=== PATIENT | female | born 1960 | race Caucasian/White ===

== ENCOUNTER 2018-08-28 12:47 | Emergency (ER) | payer SELFPAY ==
[~2018-08-28] VITALS: Ht 157.5 cm; Wt 68.0 kg
[2018-08-28 13:00] VITALS: BP 200/99
[2018-08-28] MEDS ORDERED: LISI-334 PO (13:28)
[2018-08-28 13:53] LABS: BILIRUBIN,URINE SMALL (NEG); CLARITY,URINE CLEAR; COLOR,URINE YELLOW; NITRITE,URINE NEGATIVE (NEG); PROTEIN,URINE 30 mg/dL (NEG-TRACE); UROBILINOGEN,URINE 0.2 mg/dL (0.2 mg/dL)
--- NOTE | 2018-08-28 14:09 | PHYS DOC ---
Past Medical History Past Medical History: Cancer, Hypertension, Other Additional Past Medical Histor: cervical cancer treated with radiation Past Surgical History: Tonsillectomy Additional Information: 11/08 ppd Alcohol Use: None Drug Use: None Adult General Chief Complaint Chief Complaint: VAGINAL BLEEDING [facility] HPI 58-year-old female presents for evaluation of dysuria, urgency, frequency and hematuria. She reports blood on the tissue after urinating. She is unsure whether she is having blood coming from the vagina. She has not noticed any blood after having bowel movements but is unsure. She reports this is her third ER visit in the past 3 months for similar symptoms. She has been seen at [facility] as well as another emergency room and diagnosed with UTI. She has taken to different antibiotics and states the symptoms get better briefly after the antibiotics but seemed to return. She does have an appointment with her primary care doctor on 09/04/18 for Pap smear and exam. She has not had a menstrual cycle for over 15 years, reports history of cervical cancer, underwent radiation and treatment. She reports has not had a menstrual cycle since that time. She does still have uterus. She reports history of chronic constipation for which she takes Colace regularly. Denies any fevers. Review of Systems Review of Systems Constitutional: Denies fever or chills [] Respiratory: Denies cough or shortness of breath [] Cardiovascular: No additional information not addressed in HPI [] GI: Reports suprapubic abdominal pain Neurologic: Denies headache, focal weakness or sensory changes [] Endocrine: Denies polyuria or polydipsia [] All other systems were reviewed and found to be within normal limits, except as documented in this note. Allergies Allergies Allergies Coded Allergies Type Severity Reaction Last Updated Verified No Known Drug Allergies 08/28/18 No Physical Exam Physical Exam Constitutional: Well developed, well nourished, no acute distress, non-toxic appearance. [] Neck: Normal range of motion, no tenderness, supple, no stridor. [] Cardiovascular:Heart rate regular rhythm, no murmur [] Lungs & Thorax: Bilateral breath sounds clear to auscultation [] Abdomen: Bowel sounds normal, soft, suprapubic tenderness, no masses, no pulsatile masses. No blood noted around the rectum, no hemorrhoids noted [] Skin: Warm, dry, no erythema, no rash. [] Back: no CVA tenderness. [] : Vaginal exam with burial agent was attempted but patient was unable to tolerate insertion of speculum, visual external examination is normal, no discharge, lesions or bleeding noted Extremities: No tenderness, no cyanosis, no clubbing, ROM intact, no edema. [] Neurologic: Alert and oriented X 3, normal motor function, normal sensory function, no focal deficits noted. [] Psychologic: Affect normal, judgement normal, mood normal. [] Current Patient Data Vital Signs Vital Signs Date Time Temp Pulse Resp B/P (MAP) Pulse Ox O2 Delivery O2 Flow Rate FiO2 08/28/18 13:00 99.0 102 20 200/99 (132) 98 Room Air 99.0 Lab Values Laboratory Tests Test 08/28/18 13:35 Urine Collection Type Void Urine Color Yellow Urine Clarity Clear Urine pH 6.0 Urine Specific [place] 1.020 Urine Protein 30 mg/dL (NEG-TRACE) Urine Glucose (UA) Negative mg/dL (NEG) Urine Ketones (Stick) Negative mg/dL (NEG) Urine Blood Large (NEG) Urine Nitrite Negative (NEG) Urine Bilirubin Small (NEG) Urine Urobilinogen Dipstick 0.2 mg/dL (0.2 mg/dL) Urine Leukocyte Esterase Large (NEG) Urine RBC Occ /HPF (0-2) Urine WBC 11-20 /HPF (0-4) Urine Squamous Epithelial Cells Mod /LPF Urine Bacteria Few /HPF (0-FEW) EKG EKG [] Radiology/Procedures Radiology/Procedures [] Course & Med Decision Making Course & Med Decision Making Pertinent Labs and Imaging studies reviewed. (See chart for details) [Patient has UTI on urine sample today. I discussed findings with patient, she is frustrated the antibiotics don't seem to be working and she still has an infection. She reports initially was on Bactrim which caused a lot of stomach cramping but she took it for approximately 9 days. She then called her primary care doctor who gave her a prescription for Cipro. She reports took it for a couple days. I also gave her cramping so she stopped taking it. I discussed with the patient this is likely the reason why she has a continued infection. She would like to try Keflex and Pyridium. She has an appointment with her primary care provider in 7 days, I have requested she speak with her and have her urine retested at that time. She is stable for discharge home, strict return precautions discussed.] Dragon Disclaimer Dragon Disclaimer This electronic medical record was generated, in whole or in part, using a voice recognition dictation system. Departure Departure Impression: Primary Impression: UTI (urinary tract infection) Disposition: HOME, SELF-CARE Condition: STABLE Referrals: UNKNOWN PCP NAME (PCP) Patient Instructions: Urinary Tract Infection, [id number] Scripts Phenazopyridine Hcl (PYRIDIUM) 200 Mg Tablet 200 MG PO TID for 3 Days, #9 TAB Prov: MAURIZIO HINSON APRN 08/28/18 Cephalexin (KEFLEX) 250 Mg Capsule 1 CAP PO TID, #21 CAP Prov: MAURIZIO HINSON APRN 08/28/18 Problem Qualifiers Primary Impression: UTI (urinary tract infection) Urinary tract infection type: acute cystitis Hematuria presence: without hematuria Qualified Codes: N30.00 - Acute cystitis without hematuria MAURIZIO HINSON APRN Aug 28, 2018 14:09
[2018-08-28 14:13] LABS: BACTERIA,URINE FEW /HPF (0-FEW); RBC,URINE OCC /HPF (0-2); SQUAMOUS EPITHELIAL CELL,UR MOD /LPF
[2018-08-28] MEDS ORDERED: CEPH-263 PO (14:38)
[2018-08-28] MEDS ORDERED: PHEN-318 PO (14:38)
== END 2018-08-28 14:55 | disposition home or self-care (01) ==
LOC: ER 12:47
DX: N30.00 Acute cystitis without hematuria (principal); I10 Essential (primary) hypertension; F17.210 Nicotine dependence, cigarettes, uncomplicated
CPT/HCPCS: 81001; 87086; 99284